=== PATIENT | female | born 1955 | race African-American/Black ===

== ENCOUNTER 2016-05-21 12:54 | Emergency (ER) | payer OTHER ==
[~2016-05-21] VITALS: Ht 167.6 cm; Wt 77.1 kg
[~2016-05-21 12:54] MED LIST: ASPI-605 PO; BENA20TA2 PO; DIPH50CA4 PO; HYDR25TA4 PO; TRAZ-147 PO
[2016-05-21] MEDS ORDERED: MAG30ORA PO (14:13)
[2016-05-21] MEDS ORDERED: PANT40TA4 PO (14:13)
[2016-05-21] MEDS ORDERED: HYDR-552 PO (14:13)
[2016-05-21] MEDS ORDERED: LURA40TA PO (14:25)
[2016-05-21] MEDS ORDERED: ATOR40TA PO (14:25)
[2016-05-21] MEDS ORDERED: QUET25TA PO (14:25)
[2016-05-21] MEDS ORDERED: METO25TA20 PO (14:25)
[2016-05-21 14:45] LABS: THYROID STIMULATING HORMONE 3.895 uIU/mL (0.358-3.74)
[2016-05-21 15:12] LABS: CANNABINOID, URINE NEGATIVE (NEGATIVE); PHENCYCLIDINE SCREEN,URINE NEGATIVE (NEGATIVE)
[2016-05-21 17:06] VITALS: BP 128/87
== END 2016-05-21 17:07 ==
LOC: ER 12:55
DX: F32.9 Major depressive disorder, single episode, unspecified (principal); F31.9 Bipolar disorder, unspecified; I10 Essential (primary) hypertension; I25.2 Old myocardial infarction; K21.9 Gastro-esophageal reflux disease without esophagitis; Z79.82 Long term (current) use of aspirin; Z86.73 Personal history of transient ischemic attack (TIA), and cerebral infarction without residual deficits
CPT/HCPCS: 36415; 71010; 80305; 84443; 99285; A4606; G0480; Z7610

== ENCOUNTER 2018-02-28 01:14 | Emergency (ER) | payer MEDICAID, OTHER ==
[~2018-02-28] VITALS: Ht 167.6 cm; Wt 79.4 kg
[~2018-02-28 01:14] MED LIST changes: -ASPI-605 PO; +ATOR40TA PO; -BENA20TA2 PO; +BENA20TA9 PO; +HYDR-4384 PO; +LURA40TA PO; +MAG30ORA PO; +METO25TA20 PO; +PANT40TA4 PO; +QUET25TA PO; -TRAZ-147 PO; +TRAZ-214 PO
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
[2018-02-28 01:51] LABS: BASOPHILS % (AUTO) 0.6 % (0.0-2.0); EOSINOPHILS % (AUTO) 1.7 % (0.0-6.0); HEMATOCRIT 41 % (33-45); LYMPHOCYTES # (AUTO) 2.4 /CMM (0.8-4.8); LYMPHOCYTES % (AUTO) 27.4 % (20.0-44.0); MEAN CORPUSCULAR HGB CONC 34 g/dl (31.0-36.0); MEAN CORPUSCULAR VOLUME 94 fL (82-100); MONOCYTES # (AUTO) 0.9 /CMM (0.1-1.30); MONOCYTES % (AUTO) 10.5 % (2.0-12.0); NEUTROPHILS # (AUTO) 5.2 /CMM (1.8-8.9); NEUTROPHILS % (AUTO) 59.8 % (43.0-81.0); PLATELET COUNT (AUTO) 367 /CMM (150-450); RED BLOOD CELL COUNT(AUTO) 4.34 MIL/uL (4.0-5.2); WHITE BLOOD COUNT (AUTO) 8.7 K/uL (4.3-11.0)
[2018-02-28 01:58] LABS: CALCIUM, SERUM 9.3 mg/dL (8.5-10.1); CARBON DIOXIDE 29 mmol/L (21-32); CHLORIDE 98 mmol/L (98-107); CREATININE 0.9 mg/dL (0.6-1.3); GLUCOSE 95 mg/dL (74-106); POTASSIUM 3.4 mmol/L (3.5-5.1); SODIUM SERUM 138 mmol/L (136-145); UREA NITROGEN, BLOOD 15 mg/dL (7-18)
[2018-02-28] MEDS ORDERED: ACETAMINOPHEN 325 MG TABLET ONE (02:01)
[2018-02-28 02:05] LABS: ACETAMINOPHEN 0 ug/ml (10-30); ALANINE AMINOTRANSFERASE 48 U/L (12-78); ALBUMIN 3.6 g/dL (3.4-5.0); ALCOHOL, BLOOD < 3 mg/dL (0-0); ALKALINE PHOSPHATASE 112 U/L (46-116); ASPARTATE AMINOTRANSFERASE 38 U/L (15-37); BILIRUBIN,DIRECT 0.4 mg/dL (0.0-0.2); BILIRUBIN,TOTAL 1.1 mg/dL (0.2-1.0); SALICYLATE 1.1 mg/dL (2.8-20.0); TOTAL PROTEIN, SERUM 8.5 g/dL (6.4-8.2)
[2018-02-28 02:29] LABS: APPEARANCE,URINE SL CLOUDY (CLEAR); BILIRUBIN,URINE MODERATE (NEGATIVE); BLOOD, URINE NEGATIVE Ery/uL (NEGATIVE); COLOR,URINE GREEN (YELLOW); KETONES,URINE TRACE (NEGATIVE); LEUKOCYTE ESTERASE ,URINE LARGE (NEGATIVE); NITRITE, URINE NEGATIVE (NEGATIVE); PROTEIN,URINE NEGATIVE (NEGATIVE); UGLUCOSE NEGATIVE (NEGATIVE)
--- NOTE | 2018-02-28 02:30 | NUR ---
Pt resting comfortably. Headache went down to 2/10 from 8/10 on admission.
[2018-02-28 02:44] LABS: BACTERIA,URINE Moderate /HPF (None Seen); RBC,URINE 0-2 /HPF (0-2); SQUAMOUS EPITHELIAL CELL,UR Few /HPF (None Seen); WBC,URINE 51-80 /HPF (0-3)
[2018-02-28] MEDS ORDERED: ACETAMINOPHEN 325 MG TABLET PO ONE (03:00)
--- NOTE | 2018-02-28 03:38 | NUR ---
Pt being evaluated at [facility] by [facility].
--- NOTE | 2018-02-28 04:41 | NUR ---
PT ACCEPTED TO [facility] BY DR FONSECA. # FOR REPORT [phone].
--- NOTE | 2018-02-28 04:54 | NUR ---
[facility] TRANSP[facility] TO [facility] ETA 20MINS #[id number]
--- NOTE | 2018-02-28 05:08 | NUR ---
Report given to Danielle in [facility]. Awaiting transport.
--- NOTE | 2018-02-28 05:36 | NUR ---
Patient will be transported by [facility] to [facility]. report given to Bjorn, ambulance staff. Pt is in stable condition. Written and verbal after care instructions given. Patient verbalizes understanding of instruction.
[2018-02-28 05:39] VITALS: BP 137/86
== END 2018-02-28 05:40 ==
LOC: ER 01:14
DX: F32.9 Major depressive disorder, single episode, unspecified (principal); I10 Essential (primary) hypertension; I25.2 Old myocardial infarction; K21.9 Gastro-esophageal reflux disease without esophagitis; E78.00 Pure hypercholesterolemia, unspecified; F17.210 Nicotine dependence, cigarettes, uncomplicated; Z86.73 Personal history of transient ischemic attack (TIA), and cerebral infarction without residual deficits; Z98.890 Other specified postprocedural states; Z79.899 Other long term (current) drug therapy
CPT/HCPCS: 36415; 80048; 80076; 80305; 80329; 81001; 85025; 87086; 99285; A4606; G0480 ×2; Z7610; 81000-TC

== ENCOUNTER 2025-01-15 01:16 | Emergency (ER) | payer MEDICARE, OTHER ==
[~2025-01-15] VITALS: Ht 167.6 cm; Wt 83.9 kg
[~2025-01-15 01:16] MED LIST changes: +MECL-159 PO; -PANT40TA4 PO; +PANT40TA49 PO; +PROC5TAB56 PO; +SUMA100T PO; -TRAZ-214 PO; +TRAZ-257 PO
[2025-01-15 02:13] LABS: PLATELET COUNT (AUTO) 248 K/uL (150-450); RED BLOOD CELL COUNT(AUTO) 4.16 MIL/uL (4.0-5.2); RED CELL DISTRIBUTION WIDTH 13.0 % (11.5-15.0); WHITE BLOOD COUNT (AUTO) 7.7 K/uL (4.3-11.0)
[2025-01-15 02:21] LABS: CALCIUM, SERUM 8.7 mg/dL (8.5-10.1); CREATININE 0.9 mg/dL (0.6-1.3); SODIUM SERUM 133 mmol/L (136-145); UREA NITROGEN, BLOOD 14 mg/dL (7-18)
[2025-01-15] MEDS ORDERED: KETOROLAC TROMETHAMINE INJ 30 MG/ML VIAL ONE (02:23)
[2025-01-15] MEDS ORDERED: hydrALAZINE HCL IV 20 MG VIAL ONE ×2 (02:23→03:18)
[2025-01-15 02:26] LABS: INR 1.0 (0.91-1.10)
[2025-01-15] MEDS: hydrALAZINE HCL IV 20 MG VIAL IV ONE ×2 (02:28→03:26)
[2025-01-15] MEDS: KETOROLAC TROMETHAMINE INJ 30 MG/ML VIAL IV ONE (02:28)
[2025-01-15 04:24] VITALS: BP 143/76; TEMP 97.5; O2SAT 96
== END 2025-01-15 04:26 | disposition home or self-care (01) ==
LOC: ER 01:18
DX: I16.0 Hypertensive urgency (principal); E78.00 Pure hypercholesterolemia, unspecified; F17.200 Nicotine dependence, unspecified, uncomplicated; F31.9 Bipolar disorder, unspecified; R51.9 Headache, unspecified; I11.9 Hypertensive heart disease without heart failure; I44.0 Atrioventricular block, first degree; Z86.73 Personal history of transient ischemic attack (TIA), and cerebral infarction without residual deficits; Z79.899 Other long term (current) drug therapy; Z90.711 Acquired absence of uterus with remaining cervical stump; Z91.148 Patient's other noncompliance with medication regimen for other reason; Z98.890 Other specified postprocedural states
CPT/HCPCS: 99285; 96374; 70450; 71045; 96375; 93005; 96376; 85025; 80048; 36415; 84484; 85730; J1885; J0360 ×2